=== PATIENT | male | born 1960 | race Caucasian/White ===

== ENCOUNTER 2019-12-04 10:06 | Outpatient (REF) | payer OTHER, SELFPAY ==
[2019-12-04 11:49] LABS: Free T4 (Free Thyroxine) 0.76 ng/dL (0.71-1.85); Thyroid Stimulating Hormone 15.29 mIU/mL (0.32-4.0)
== END 2019-12-04 10:07 | disposition home or self-care (01) ==
LOC: HO.LAB 10:06
PROVIDERS: Visit Provider Nurse Practitioner Gerontology
DX: E03.8 Other specified hypothyroidism (principal)
CPT/HCPCS: 84439; 84443

== ENCOUNTER → 2019-12-06 14:09 | Outpatient (BNVA) | payer OTHER, SELFPAY | PROVIDERS: Visit Provider Nurse Practitioner Gerontology | DX: E06.3 Autoimmune thyroiditis (principal); I10 Essential (primary) hypertension | CPT/HCPCS: 99213 ==

== ENCOUNTER 2019-12-10 09:41 | Outpatient (REF) | payer OTHER, SELFPAY | END 2019-12-10 09:42 | disposition home or self-care (01) | LOC: HO.LAB 09:41 | PROVIDERS: Visit Provider Internal Medicine | DX: Z20.828 Contact with and (suspected) exposure to other viral communicable diseases (principal) | CPT/HCPCS: U0003 ==

== ENCOUNTER → 2020-03-06 14:17 | Outpatient (BNVA) | payer OTHER, SELFPAY | PROVIDERS: Visit Provider Nurse Practitioner Gerontology | DX: E06.3 Autoimmune thyroiditis (principal) | CPT/HCPCS: 99212 ==

== ENCOUNTER 2020-09-11 19:37 | Emergency (ER) | payer OTHER, SELFPAY ==
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
[2020-09-11 19:46] VITALS: BP 173/68; PULSE 70; O2SAT 96
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
--- NOTE | 2020-09-11 19:58 | ECG_ITS ---
Test Reason : CHEST PAIN Blood Pressure : / mmHG Vent. Rate : 064 BPM Atrial Rate : 064 BPM P-R Int : 152 ms QRS Dur : 090 ms QT Int : 380 ms P-R-T Axes : 065 031 037 degrees QTc Int : 392 ms Normal sinus rhythm Normal ECG No previous ECGs available Referred By: Pierre Ramos Electronically Signed By:Bert Arias
[2020-09-11 20:00] VITALS: BP 142/76; PULSE 80; RESP 18; TEMP 37.4; O2SAT 98
[2020-09-11 20:04] VITALS: BP 142/76; BP 173/68; PULSE 70; PULSE 80; RESP 18; TEMP 37.4; O2SAT 96; O2SAT 98; BMI 25.3
[2020-09-11] MEDS: Ibuprofen 600 MG TABLET PO (21:30)
== END 2020-09-11 21:47 | disposition home or self-care (01) ==
PROVIDERS: Emergency Provider Internal Medicine
DX: Z04.1 Encounter for examination and observation following transport accident (principal); M54.6 Pain in thoracic spine; R07.89 Other chest pain
CPT/HCPCS: 71046; 93005; 99284

== ENCOUNTER 2023-03-29 07:04 | Outpatient (REF) | payer OTHER, SELFPAY ==
[2023-03-29 08:20] LABS: Estimated Average Glucose 123 mg/dL; Hemoglobin A1C 151.1113 umol/L; Hemoglobin A1c % 5.9 % (<6.0)
[2023-03-29 08:47] LABS: Cholesterol 294 mg/dL (<200); HDL Cholesterol 47 mg/dL (>40); LDL Cholesterol Calculated 213 mg/dL (<100); Triglycerides 174 mg/dL (<150)
[2023-03-29 09:07] LABS: Prostate Specific Antigen 1.09 ng/mL (<0.05-4.0)
[2023-03-29 12:31] LABS: Free T4 (Free Thyroxine) 0.79 ng/dL (0.71-1.85)
== END 2023-03-29 07:05 | disposition home or self-care (01) ==
LOC: HO.LAB 07:04
PROVIDERS: PCP Registered Nurse; Visit Provider Registered Nurse
DX: Z00.00 Encounter for general adult medical examination without abnormal findings (principal); R73.03 Prediabetes; E03.8 Other specified hypothyroidism; E06.3 Autoimmune thyroiditis
CPT/HCPCS: 36415; 80061; 83036; 84153; 84439; 84443

== ENCOUNTER 2023-10-15 15:50 | Outpatient (REF) | payer OTHER, SELFPAY ==
[2023-10-15 16:57] LABS: Anion Gap 13 (12-20); Blood Urea Nitrogen 16 mg/dL (9-16); Calcium 9.4 mg/dL (8.4-10.2); Carbon Dioxide 27 mmol/L (22-29); Chloride 103 mmol/L (96-108); Estimated Glomerular Filt Rate > 60; Glucose Random 101 mg/dL (60-115); Potassium 3.6 mmol/L (3.3-5.1); Sodium 139 mmol/L (135-145)
[2023-10-15 17:10] LABS: TSH reflex Free T4 6.69 uIU/mL (0.32-4.0)
[2023-10-15 18:05] LABS: Free T4 (Free Thyroxine) 0.66 ng/dL (0.71-1.85)
== END 2023-10-15 15:51 | disposition home or self-care (01) ==
LOC: HO.HHCL 15:50
PROVIDERS: Visit Provider Internal Medicine Geriatric Medicine
DX: I10 Essential (primary) hypertension (principal); Z86.39 Personal history of other endocrine, nutritional and metabolic disease
CPT/HCPCS: 36415; 80048; 84439; 84443